=== PATIENT | female | born 1985 | race African-American/Black ===

== ENCOUNTER 2020-02-08 10:14 | Emergency (ER) | payer OTHER ==
[~2020-02-08] VITALS: Ht 162.6 cm; Wt 77.3 kg
[~2020-02-08 10:14] MED LIST: NOCURR
[2020-02-08] MEDS ORDERED: HYDROCODONE/ACETAMINOPHEN 5-325 MG TABLET PO ONE (11:15)
[2020-02-08] MEDS ORDERED: QUEtiapine FUMARATE 100 MG TABLET PO ONE (11:15)
[2020-02-08 11:36] LABS: BASOPHILS % (AUTO) 0.5 % (0.0-2.0); EOSINOPHILS % (AUTO) 7.7 % (1.0-6.0); HEMATOCRIT 35.7 % (36-46); HEMOGLOBIN 11.8 g/dL (12.0-16.0); LYMPHOCYTES # (AUTO) 2.2 K/uL (1.0-4.8); LYMPHOCYTES % (AUTO) 23.7 % (22.0-44.0); MEAN CORPUSCULAR VOLUME 97 fL (80-100); MONOCYTES # (AUTO) 0.7 K/uL (0.1-1.0); MONOCYTES % (AUTO) 7.5 % (2.0-9.0); NEUTROPHILS # (AUTO) 5.7 K/uL (1.8-7.7); NEUTROPHILS % (AUTO) 60.6 % (40.0-70.0); PLATELET COUNT (AUTO) 359 K/uL (150-450); RED BLOOD CELL COUNT(AUTO) 3.68 MIL/uL (4.00-5.20); RED CELL DISTRIBUTION WIDTH 13.9 % (11.5-14.5)
[2020-02-08 11:56] LABS: ANION GAP 8 mmol/L (8-16); CALCIUM, TOTAL 8.7 mg/dL (8.8-10.5); CARBON DIOXIDE 26 mmol/L (22-29); CHLORIDE 105 mmol/L (98-107); CREATININE 0.85 mg/dL (0.60-1.30); GLOMERULAR FILTR. RATE CALC > 60 mL/min (>60); GLUCOSE,RANDOM 93 mg/dL (70-110); POTASSIUM 3.8 mmol/L (3.5-5.1); SODIUM SERUM 139 mmol/L (136-145); UREA NITROGEN, BLOOD 9 mg/dL (7-18)
[2020-02-08 12:08] LABS: ALANINE AMINOTRANSFERASE 23 U/L (12-78); ALBUMIN 3.7 g/dL (3.4-5.0); ALKALINE PHOSPHATASE 69 U/L (46-116); ASPARTATE AMINOTRANSFERASE 17 U/L (15-37); BILIRUBIN,TOTAL 0.1 mg/dL (0.1-1.0); HCG,QUANTITATIVE < 1 mIU/mL (0-6); TOTAL PROTEIN, SERUM 7.6 g/dL (6.4-8.2)
[2020-02-08] MEDS ORDERED: HALOPERIDOL 5 MG TABLET PO PRN (12:30)
[2020-02-08] MEDS ORDERED: LORazepam 2 MG TABLET PO PRN (12:30)
[2020-02-08] MEDS ORDERED: ZOLPIDEM TARTRATE 10 MG TABLET PO PRN (12:30)
[2020-02-08] MEDS ORDERED: MORPHINE SULFATE 4 MG/ML SYRINGE IVP ONE (13:30)
[2020-02-08] MEDS ORDERED: AMPICILLIN SODIUM/SULBACTAM NA 3 GM/VIAL IM ONE (13:45)
[2020-02-08] MEDS ORDERED: AMPICILLIN SODIUM/SULBACTAM NA 1.5 GM/VIAL IM ONE (13:45)
[2020-02-08] MEDS ORDERED: KETOROLAC TROMETHAMINE 30 MG/ML VIAL IVP ONE (13:45)
[2020-02-08 14:23] VITALS: BP 113/60
== END 2020-02-08 15:57 | disposition short-term general hospital (02) ==
LOC: EMS 10:15
DX: S02.32XA Fracture of orbital floor, left side, initial encounter for closed fracture (principal); R45.851 Suicidal ideations; F31.9 Bipolar disorder, unspecified; F20.9 Schizophrenia, unspecified; F17.210 Nicotine dependence, cigarettes, uncomplicated; F12.90 Cannabis use, unspecified, uncomplicated; F19.90 Other psychoactive substance use, unspecified, uncomplicated; Y04.2XXA Assault by strike against or bumped into by another person, initial encounter; Y93.89 Activity, other specified; Y92.89 Other specified places as the place of occurrence of the external cause; Y99.8 Other external cause status
CPT/HCPCS: 36415; 70450; 70486; 80053; 84702; 85025; 96372; 96374; 96375; 99285; G0480; J0295; J1885; J2270

== ENCOUNTER 2020-02-23 11:13 | Emergency (ER) | payer OTHER ==
[~2020-02-23] VITALS: Ht 165.1 cm; Wt 63.6 kg
[2020-02-23] MEDS ORDERED: METH-372 PO (11:25)
[2020-02-23] MEDS ORDERED: QUET300T2 PO (11:25)
[2020-02-23] MEDS ORDERED: VENL-68 PO (11:25)
[2020-02-23] MEDS ORDERED: SODIUM CHLORIDE 0.9% 1,000 ML IV ONE (11:45)
[2020-02-23] MEDS ORDERED: ACETAMINOPHEN 325 MG TABLET PO ONE (11:45)
[2020-02-23] MEDS ORDERED: ONDANSETRON HCL 4 MG/2 ML VIAL IVP ONE (11:45)
[2020-02-23] MEDS ORDERED: LORazepam 2 MG/ML VIAL IVP ONE (11:45)
[2020-02-23] MEDS ORDERED: HALOPERIDOL 5 MG TABLET PO ONE (12:00)
[2020-02-23 12:49] LABS: BASOPHILS % (AUTO) 0.3 % (0.0-2.0); EOSINOPHILS % (AUTO) 1.5 % (1.0-6.0); HEMATOCRIT 41.3 % (36-46); HEMOGLOBIN 13.6 g/dL (12.0-16.0); LYMPHOCYTES # (AUTO) 2.1 K/uL (1.0-4.8); LYMPHOCYTES % (AUTO) 11.5 % (22.0-44.0); MEAN CORPUSCULAR HEMOGLOBIN 31.1 pg (26.0-34.0); MEAN CORPUSCULAR HGB CONC 32.9 G/dL (31.0-37.0); MEAN CORPUSCULAR VOLUME 95 fL (80-100); MONOCYTES # (AUTO) 1.4 K/uL (0.1-1.0); MONOCYTES % (AUTO) 7.7 % (2.0-9.0); NEUTROPHILS # (AUTO) 14.6 K/uL (1.8-7.7); PLATELET COUNT (AUTO) 421 K/uL (150-450); RED BLOOD CELL COUNT(AUTO) 4.36 MIL/uL (4.00-5.20); RED CELL DISTRIBUTION WIDTH 13.9 % (11.5-14.5)
[2020-02-23 14:20] LABS: CALCIUM, TOTAL 9.4 mg/dL (8.8-10.5); CARBON DIOXIDE 21 mmol/L (22-29); CREATININE 0.91 mg/dL (0.60-1.30); GLOMERULAR FILTR. RATE CALC > 60 mL/min (>60); GLUCOSE,RANDOM 89 mg/dL (70-110); POTASSIUM 3.2 mmol/L (3.5-5.1); SODIUM SERUM 138 mmol/L (136-145); UREA NITROGEN, BLOOD 16 mg/dL (7-18)
[2020-02-23 14:23] LABS: ANION GAP 16 mmol/L (8-16); CHLORIDE 101 mmol/L (98-107)
[2020-02-23 14:26] LABS: ALANINE AMINOTRANSFERASE 45 U/L (12-78); ALBUMIN 4.6 g/dL (3.4-5.0); ALKALINE PHOSPHATASE 83 U/L (46-116); ASPARTATE AMINOTRANSFERASE 108 U/L (15-37); TOTAL PROTEIN, SERUM 9.1 g/dL (6.4-8.2)
[2020-02-23 15:00] VITALS: BP 127/79
== END 2020-02-23 15:11 | disposition left against medical advice (07) ==
LOC: EMS 11:16
DX: F20.9 Schizophrenia, unspecified (principal); D72.829 Elevated white blood cell count, unspecified; F41.9 Anxiety disorder, unspecified; F19.10 Other psychoactive substance abuse, uncomplicated; F31.9 Bipolar disorder, unspecified; F17.210 Nicotine dependence, cigarettes, uncomplicated; F12.90 Cannabis use, unspecified, uncomplicated
CPT/HCPCS: 36415; 80053; 85025; 96374; 96375; 99285; G0480; J2060; J2405; J7030

== ENCOUNTER 2020-03-19 12:21 | Inpatient (IN) | payer MEDICAID ==
[~2020-03-19 12:21] MED LIST changes: +METH-372 PO; -NOCURR; +QUET300T2 PO; +VENL-68 PO
[2020-03-19] MEDS ORDERED: ZOLPIDEM TARTRATE 10 MG TABLET PO PRN (18:45)
[2020-03-19] MEDS ORDERED: HALOPERIDOL 5 MG TABLET PO PRN (18:45)
[2020-03-19] MEDS: LORazepam 2 MG TABLET PO PRN (20:44)
[2020-03-19] MEDS: METHOCARBAMOL 750 MG TABLET PO SCH ×2 (21:00→21:37)
[2020-03-19 22:34] VITALS: BP 107/63
[2020-03-20 00:03] VITALS: BP 106/68
[2020-03-20] MEDS: LORazepam 2 MG TABLET PO PRN (06:20)
[2020-03-20] MEDS ORDERED: ACETAMINOPHEN 325 MG TABLET PO PRN ×2 (06:45→10:45)
[2020-03-20 08:20] LABS: BASOPHILS % (AUTO) 0.5 % (0.0-2.0); EOSINOPHILS % (AUTO) 11.2 % (1.0-6.0); HEMATOCRIT 36.1 % (36-46); HEMOGLOBIN 11.9 g/dL (12.0-16.0); LYMPHOCYTES # (AUTO) 1.7 K/uL (1.0-4.8); LYMPHOCYTES % (AUTO) 32.9 % (22.0-44.0); MEAN CORPUSCULAR HEMOGLOBIN 31.9 pg (26.0-34.0); MEAN CORPUSCULAR HGB CONC 32.9 G/dL (31.0-37.0); MEAN CORPUSCULAR VOLUME 97 fL (80-100); MONOCYTES # (AUTO) 0.3 K/uL (0.1-1.0); MONOCYTES % (AUTO) 6.9 % (2.0-9.0); NEUTROPHILS # (AUTO) 2.4 K/uL (1.8-7.7); NEUTROPHILS % (AUTO) 48.5 % (40.0-70.0); PLATELET COUNT (AUTO) 319 K/uL (150-450); RED BLOOD CELL COUNT(AUTO) 3.72 MIL/uL (4.00-5.20); RED CELL DISTRIBUTION WIDTH 13.9 % (11.5-14.5)
[2020-03-20] MEDS: METHOCARBAMOL 750 MG TABLET PO SCH ×4 (08:36→20:22)
[2020-03-20 09:08] LABS: ALANINE AMINOTRANSFERASE 17 U/L (12-78); ALBUMIN 3.5 g/dL (3.4-5.0); ALKALINE PHOSPHATASE 75 U/L (46-116); ANION GAP 10 mmol/L (8-16); ASPARTATE AMINOTRANSFERASE 14 U/L (15-37); BILIRUBIN,TOTAL 0.2 mg/dL (0.1-1.0); CALCIUM, TOTAL 8.9 mg/dL (8.8-10.5); CARBON DIOXIDE 24 mmol/L (22-29); CHLORIDE 106 mmol/L (98-107); CHOL/HDL RATIO 2.9 (3.9-5.7); CHOLESTEROL 140 mg/dL (131-200); CREATININE 0.79 mg/dL (0.60-1.30); FREE T4 (FREE THYROXINE) 0.96 ng/dL (0.76-1.46); GLOMERULAR FILTR. RATE CALC > 60 mL/min (>60); GLUCOSE,RANDOM 79 mg/dL (70-110); HDL CHOLESTEROL 48 mg/dL (40-60); LDL CHOL (CALC.) 77 mg/dL (0-130); POTASSIUM 3.9 mmol/L (3.5-5.1); SODIUM SERUM 140 mmol/L (136-145); THYROID STIMULATING HORMONE 0.43 uIU/mL (0.36-3.74); TOTAL PROTEIN, SERUM 7.4 g/dL (6.4-8.2); TRIGLYCERIDES 76 mg/dL (15-150); UREA NITROGEN, BLOOD 16 mg/dL (7-18)
[2020-03-20 10:44] VITALS: BP 116/77
[2020-03-20] MEDS ORDERED: IBUPROFEN 400 MG TABLET PO PRN (10:45)
[2020-03-20] MEDS ORDERED: MAG HYDROX/AL HYDROX/SIMETH ES 30 ML SUSPENSION UDCUP PO PRN (10:45)
[2020-03-20] MEDS ORDERED: PETROLATUM,WHITE 28 GM JELLY TP PRN (10:45)
[2020-03-20] MEDS ORDERED: LOPERAMIDE HCL 2 MG CAPSULE PO PRN (10:45)
[2020-03-20] MEDS ORDERED: NICOTINE 14 MG/24 HOUR PATCH TD PRN (10:45)
[2020-03-20] MEDS ORDERED: CloNIDine HCL 0.1 MG TABLET PO PRN (10:45)
[2020-03-20] MEDS ORDERED: DOCUSATE SODIUM 100 MG CAPSULE PO PRN (10:45)
[2020-03-20] MEDS ORDERED: ONDANSETRON HCL 4 MG TABLET PO PRN (10:45)
[2020-03-20] MEDS ORDERED: MAGNESIUM HYDROXIDE SUSPENSION 30 ML UDCUP PO PRN (10:45)
[2020-03-20] MEDS ORDERED: GuaiFENesin/D-METHORPHAN [SUGAR-FREE] 200-20MG/10 ML SYRUP UDCUP PO PRN (10:45)
[2020-03-20] MEDS ORDERED: ALBUTEROL SULFATE HFA 90 MCG/PUFF 8 GM INHALER IH PRN (10:45)
[2020-03-20 16:08] VITALS: BP 120/72
[2020-03-20] MEDS: VENLAFAXINE HCL 150 MG ER CAPSULE PO SCH (16:17)
[2020-03-20] MEDS: QUEtiapine FUMARATE 300 MG TABLET PO SCH (20:22)
[2020-03-21 01:00] VITALS: BP 113/71
[2020-03-21] MEDS: VENLAFAXINE HCL 150 MG ER CAPSULE PO SCH (08:26)
[2020-03-21] MEDS: METHOCARBAMOL 750 MG TABLET PO SCH ×4 (08:26→20:16)
[2020-03-21 08:33] VITALS: BP 106/57
[2020-03-21 09:17] LABS: APPEARANCE,URINE CLEAR (CLEAR); BILIRUBIN,URINE NEGATIVE (NEGATIVE); GLUCOSE, URINE (UA) NEGATIVE (NEGATIVE); KETONES,URINE NEGATIVE (NEGATIVE); NITRATE,URINE NEGATIVE (NEGATIVE); PROTEIN,URINE NEGATIVE (NEGATIVE); UROBILINOGEN,URINE 0.2 mg/dL (<=1.0)
[2020-03-21 09:18] LABS: AMPHET/METH SCREEN,URINE NEGATIVE (NEGATIVE); BARBITURATE SCREEN, URINE NEGATIVE (NEGATIVE); BENZODIAZEPINES SCREEN,URINE NEGATIVE (NEGATIVE); CANNABINOID SCREEN,URINE NEGATIVE (NEGATIVE); COCAINE SCREEN,URINE NEGATIVE (NEGATIVE); METHADONE SCREEN, URINE NEGATIVE (NEGATIVE); OPIATE SCREEN,URINE NEGATIVE (NEGATIVE)
[2020-03-21 09:22] LABS: PHENCYCLIDINE SCREEN,URINE NEGATIVE (NEGATIVE)
[2020-03-21 09:39] LABS: BACTERIA,URINE None Seen /HPF (None Seen); LEUKOCYTE ESTERASE ,URINE TRACE (NEGATIVE); OCCULT BLOOD,URINE SMALL (NEGATIVE); WBC,URINE 0-2 /HPF (0-5)
[2020-03-21 09:40] LABS: SQUAMOUS EPITHELIAL CELL,UR Moderate /LPF (None Seen)
[2020-03-21 16:06] VITALS: BP 113/73
[2020-03-21] MEDS: QUEtiapine FUMARATE 300 MG TABLET PO SCH (20:16)
[2020-03-22 00:56] VITALS: BP 120/79
[2020-03-22 08:30] VITALS: BP 115/56
[2020-03-22] MEDS: VENLAFAXINE HCL 150 MG ER CAPSULE PO SCH (08:43)
[2020-03-22] MEDS: METHOCARBAMOL 750 MG TABLET PO SCH ×4 (08:43→20:31)
[2020-03-22] MEDS: LORazepam 2 MG TABLET PO PRN (10:59)
[2020-03-22] MEDS: QUEtiapine FUMARATE 25 MG TABLET PO SCH (13:10)
[2020-03-22 16:00] VITALS: BP 131/64
[2020-03-22] MEDS: QUEtiapine FUMARATE 300 MG TABLET PO SCH (20:31)
[2020-03-23 00:55] VITALS: BP 119/80
[2020-03-23] MEDS: METHOCARBAMOL 750 MG TABLET PO SCH ×4 (08:48→20:21)
[2020-03-23] MEDS: VENLAFAXINE HCL 150 MG ER CAPSULE PO SCH (08:48)
[2020-03-23] MEDS: QUEtiapine FUMARATE 25 MG TABLET PO SCH (08:49)
[2020-03-23 11:22] VITALS: BP 116/73
[2020-03-23] MEDS: LORazepam 2 MG TABLET PO PRN (11:22)
[2020-03-23 12:40] VITALS: BP 99/58
[2020-03-23 16:29] VITALS: BP 103/54
[2020-03-23] MEDS: QUEtiapine FUMARATE 300 MG TABLET PO SCH (20:21)
[2020-03-24 07:18] VITALS: BP 105/61
[2020-03-24] MEDS: METHOCARBAMOL 750 MG TABLET PO SCH ×4 (09:00→21:17)
[2020-03-24] MEDS: QUEtiapine FUMARATE 25 MG TABLET PO SCH (09:00)
[2020-03-24] MEDS: VENLAFAXINE HCL 150 MG ER CAPSULE PO SCH (09:00)
[2020-03-24 09:22] VITALS: BP 105/62
[2020-03-24] MEDS: LORazepam 2 MG TABLET PO PRN ×2 (10:53→17:03)
[2020-03-24 16:22] VITALS: BP 127/88
[2020-03-24] MEDS: QUEtiapine FUMARATE 300 MG TABLET PO SCH (21:17)
[2020-03-25 06:26] VITALS: BP 105/69
[2020-03-25] MEDS: QUEtiapine FUMARATE 25 MG TABLET PO SCH (08:05)
[2020-03-25] MEDS: METHOCARBAMOL 750 MG TABLET PO SCH ×4 (08:06→21:08)
[2020-03-25] MEDS: VENLAFAXINE HCL 150 MG ER CAPSULE PO SCH (08:07)
[2020-03-25] MEDS: LORazepam 2 MG TABLET PO PRN (08:08)
[2020-03-25 08:47] VITALS: BP 108/65
[2020-03-25] MEDS ORDERED: QUEtiapine FUMARATE 25 MG TABLET PO ONE (09:30)
[2020-03-25 16:16] VITALS: BP 111/65
[2020-03-25] MEDS: QUEtiapine FUMARATE 200 MG TABLET PO SCH (21:08)
[2020-03-26 05:06] VITALS: BP 110/68
[2020-03-26] MEDS: LORazepam 2 MG TABLET PO PRN ×2 (07:14→16:25)
[2020-03-26 08:40] VITALS: BP 109/75
[2020-03-26] MEDS: QUEtiapine FUMARATE 100 MG TABLET PO SCH (08:51)
[2020-03-26] MEDS: VENLAFAXINE HCL 150 MG ER CAPSULE PO SCH (08:51)
[2020-03-26] MEDS: METHOCARBAMOL 750 MG TABLET PO SCH ×4 (08:51→20:47)
[2020-03-26 16:38] VITALS: BP 113/74
[2020-03-26] MEDS: QUEtiapine FUMARATE 200 MG TABLET PO SCH (20:47)
[2020-03-27 00:45] VITALS: BP 107/63
[2020-03-27] MEDS: LORazepam 2 MG TABLET PO PRN (07:09)
[2020-03-27] MEDS: VENLAFAXINE HCL 150 MG ER CAPSULE PO SCH (08:39)
[2020-03-27] MEDS: METHOCARBAMOL 750 MG TABLET PO SCH ×2 (08:39→12:35)
[2020-03-27] MEDS: QUEtiapine FUMARATE 100 MG TABLET PO SCH (08:39)
[2020-03-27 09:33] VITALS: BP 133/75
[2020-03-27] MEDS ORDERED: QUET100T PO (14:19)
[2020-03-27] MEDS ORDERED: QUET200T PO (14:28)
== END 2020-03-27 15:45 | disposition home or self-care (01) | DRG 750 ==
LOC: B2S 18:39
DX: F25.1 Schizoaffective disorder, depressive type (principal); R45.851 Suicidal ideations; Z59.0 Homelessness; N39.0 Urinary tract infection, site not specified; D64.9 Anemia, unspecified; F15.10 Other stimulant abuse, uncomplicated; Z79.899 Other long term (current) drug therapy
CPT/HCPCS: 80307; 83036; 84439; 84443; 86592; G0480

== ENCOUNTER 2022-04-08 10:48 | Inpatient (IN) | payer MEDICAID, OTHER ==
[~2022-04-08] VITALS: Ht 162.6 cm; Wt 87.5 kg
[~2022-04-08 10:48] MED LIST changes: +QUET100T PO; +QUET200T PO; -QUET300T2 PO
[2022-04-08 14:10] LABS: BASOPHILS % (AUTO) 0.2 % (0.0-2.0); EOSINOPHILS % (AUTO) 0.5 % (1.0-6.0); HEMATOCRIT 33.1 % (36-46); HEMOGLOBIN 10.9 g/dL (12.0-16.0); LYMPHOCYTES # (AUTO) 1.9 K/uL (1.0-4.8); LYMPHOCYTES % (AUTO) 16.8 % (22.0-44.0); MEAN CORPUSCULAR HEMOGLOBIN 27.7 pg (26.0-34.0); MEAN CORPUSCULAR HGB CONC 33.1 G/dL (31.0-37.0); MEAN CORPUSCULAR VOLUME 84 fL (80-100); MONOCYTES # (AUTO) 0.7 K/uL (0.1-1.0); MONOCYTES % (AUTO) 6.5 % (2.0-9.0); NEUTROPHILS # (AUTO) 8.4 K/uL (1.8-7.7); PLATELET COUNT (AUTO) 466 K/uL (150-450); RED BLOOD CELL COUNT(AUTO) 3.96 MIL/uL (4.00-5.20); RED CELL DISTRIBUTION WIDTH 18.3 % (11.5-14.5)
[2022-04-08 14:36] LABS: ALANINE AMINOTRANSFERASE 21 U/L (12-78); ALBUMIN 4.1 g/dL (3.4-5.0); ALKALINE PHOSPHATASE 76 U/L (46-116); ANION GAP 14 mmol/L (8-16); ASPARTATE AMINOTRANSFERASE 19 U/L (15-37); BILIRUBIN,TOTAL 0.7 mg/dL (0.1-1.0); CALCIUM, TOTAL 9.5 mg/dL (8.8-10.5); CARBON DIOXIDE 20 mmol/L (22-29); CHLORIDE 105 mmol/L (98-107); CREATININE 0.88 mg/dL (0.60-1.30); GLOMERULAR FILTR. RATE CALC > 60 mL/min (>60); GLUCOSE,RANDOM 90 mg/dL (70-110); HCG,QUANTITATIVE < 1 mIU/mL (0-6); POTASSIUM 2.9 mmol/L (3.5-5.1); SODIUM SERUM 139 mmol/L (136-145); TOTAL PROTEIN, SERUM 8.2 g/dL (6.4-8.2); UREA NITROGEN, BLOOD 11 mg/dL (7-18)
[2022-04-08] MEDS ORDERED: POTASSIUM CHLORIDE 20 MEQ ER TABLET PO ONE (14:45)
[2022-04-08 14:48] LABS: COVID AG,FIA SOURCE NASOPHARYNGEAL
[2022-04-08] MEDS ORDERED: HALOPERIDOL 5 MG TABLET PO PRN (15:00)
[2022-04-08] MEDS: LORazepam 2 MG TABLET PO PRN (15:50)
[2022-04-08] MEDS: QUEtiapine FUMARATE 100 MG TABLET PO PRN (15:50)
[2022-04-08 21:54] VITALS: BP 128/91
[2022-04-09 00:34] VITALS: BP 124/87
[2022-04-09] MEDS: LORazepam 2 MG TABLET PO PRN ×3 (04:08→14:25)
[2022-04-09] MEDS ORDERED: BENZOCAINE/MENTHOL LOZENGE PO PRN (06:15)
[2022-04-09] MEDS ORDERED: LOPERAMIDE HCL 2 MG CAPSULE PO PRN (06:15)
[2022-04-09] MEDS ORDERED: CloNIDine HCL 0.1 MG TABLET PO PRN (06:15)
[2022-04-09] MEDS ORDERED: PETROLATUM,WHITE 28 GM JELLY TP PRN (06:15)
[2022-04-09] MEDS ORDERED: DOCUSATE SODIUM 100 MG CAPSULE PO PRN (06:15)
[2022-04-09] MEDS ORDERED: POTASSIUM CHLORIDE 20 MEQ ER TABLET PO ONE (06:15)
[2022-04-09] MEDS ORDERED: ONDANSETRON HCL 4 MG TABLET PO PRN (06:15)
[2022-04-09] MEDS ORDERED: ACETAMINOPHEN 325 MG TABLET PO PRN (06:15)
[2022-04-09] MEDS ORDERED: MAG HYDROX/AL HYDROX/SIMETH ES 30 ML SUSPENSION UDCUP PO PRN (06:15)
[2022-04-09] MEDS ORDERED: BACITRACIN 28 GM OINTMENT TP PRN (06:15)
[2022-04-09] MEDS ORDERED: MAGNESIUM HYDROXIDE SUSPENSION 30 ML UDCUP PO PRN (06:15)
[2022-04-09] MEDS ORDERED: OMEPRAZOLE 20 MG CAPSULE PO PRN (06:15)
[2022-04-09] MEDS ORDERED: ALBUTEROL SULFATE HFA 90 MCG/PUFF 8 GM INHALER IH PRN (06:15)
[2022-04-09 08:26] VITALS: BP 106/64
[2022-04-09] MEDS: IBUPROFEN 600 MG TABLET PO PRN ×2 (08:40→14:42)
[2022-04-09] MEDS: VENLAFAXINE HCL 150 MG ER CAPSULE PO SCH (10:35)
[2022-04-09] MEDS: DIVALPROEX SODIUM 500 MG DR TABLET PO SCH ×2 (10:36→16:18)
[2022-04-09] MEDS: QUEtiapine FUMARATE 100 MG TABLET PO PRN (14:31)
[2022-04-09 16:28] VITALS: BP 105/73
[2022-04-09] MEDS: QUEtiapine FUMARATE 200 MG TABLET PO SCH (20:49)
[2022-04-10 06:49] LABS: BASOPHILS % (AUTO) 0.3 % (0.0-2.0); EOSINOPHILS % (AUTO) 3.1 % (1.0-6.0); HEMOGLOBIN 10.6 g/dL (12.0-16.0); LYMPHOCYTES # (AUTO) 2.5 K/uL (1.0-4.8); LYMPHOCYTES % (AUTO) 29.8 % (22.0-44.0); MEAN CORPUSCULAR HEMOGLOBIN 27.9 pg (26.0-34.0); MEAN CORPUSCULAR VOLUME 84 fL (80-100); MONOCYTES # (AUTO) 0.5 K/uL (0.1-1.0); MONOCYTES % (AUTO) 6.4 % (2.0-9.0); NEUTROPHILS # (AUTO) 5.1 K/uL (1.8-7.7); NEUTROPHILS % (AUTO) 60.4 % (40.0-70.0); PLATELET COUNT (AUTO) 464 K/uL (150-450); RED BLOOD CELL COUNT(AUTO) 3.79 MIL/uL (4.00-5.20); RED CELL DISTRIBUTION WIDTH 18.5 % (11.5-14.5)
[2022-04-10 07:19] LABS: ALANINE AMINOTRANSFERASE 16 U/L (12-78); ALBUMIN 3.5 g/dL (3.4-5.0); ALKALINE PHOSPHATASE 70 U/L (46-116); ANION GAP 10 mmol/L (8-16); ASPARTATE AMINOTRANSFERASE 12 U/L (15-37); BILIRUBIN,TOTAL 0.3 mg/dL (0.1-1.0); CALCIUM, TOTAL 9.2 mg/dL (8.8-10.5); CARBON DIOXIDE 23 mmol/L (22-29); CHLORIDE 109 mmol/L (98-107); CREATININE 0.97 mg/dL (0.60-1.30); GLOMERULAR FILTR. RATE CALC > 60 mL/min (>60); GLUCOSE,RANDOM 83 mg/dL (70-110); PHOSPHORUS 5.1 mg/dL (2.5-4.9); POTASSIUM 3.9 mmol/L (3.5-5.1); SODIUM SERUM 142 mmol/L (136-145); TOTAL PROTEIN, SERUM 7.3 g/dL (6.4-8.2); UREA NITROGEN, BLOOD 14 mg/dL (7-18)
[2022-04-10 08:21] VITALS: BP 100/60
[2022-04-10] MEDS: VENLAFAXINE HCL 150 MG ER CAPSULE PO SCH (08:39)
[2022-04-10] MEDS: DIVALPROEX SODIUM 500 MG DR TABLET PO SCH ×2 (08:39→16:22)
[2022-04-10] MEDS: QUEtiapine FUMARATE 100 MG TABLET PO PRN (11:29)
[2022-04-10] MEDS: LORazepam 2 MG TABLET PO PRN (11:30)
[2022-04-10 16:16] VITALS: BP 105/62
[2022-04-10] MEDS: QUEtiapine FUMARATE 200 MG TABLET PO SCH (20:17)
[2022-04-11 00:36] VITALS: BP 102/66
[2022-04-11 08:06] VITALS: BP_SYST 117; BP_SYST 98; BP_DIAS 58; BP_DIAS 77
[2022-04-11] MEDS: DIVALPROEX SODIUM 500 MG DR TABLET PO SCH ×2 (08:30→16:19)
[2022-04-11] MEDS: LORazepam 2 MG TABLET PO PRN (08:30)
[2022-04-11] MEDS: VENLAFAXINE HCL 150 MG ER CAPSULE PO SCH (08:30)
[2022-04-11] MEDS: QUEtiapine FUMARATE 200 MG TABLET PO SCH ×2 (10:40→20:13)
[2022-04-11] MEDS: QUEtiapine FUMARATE 100 MG TABLET PO PRN (12:15)
[2022-04-11 16:03] VITALS: BP 103/64
[2022-04-12 06:11] VITALS: BP 110/62
[2022-04-12] MEDS: DIVALPROEX SODIUM 500 MG DR TABLET PO SCH ×2 (08:40→16:13)
[2022-04-12] MEDS: VENLAFAXINE HCL 150 MG ER CAPSULE PO SCH (08:40)
[2022-04-12] MEDS: QUEtiapine FUMARATE 200 MG TABLET PO SCH ×2 (08:40→20:39)
[2022-04-12 08:54] VITALS: BP 91/60
[2022-04-12] MEDS ORDERED: DIVALPROEX SODIUM 500 MG DR TABLET PO SCH (11:15)
[2022-04-12] MEDS ORDERED: RisperiDONE 3 MG TABLET PO SCH (11:15)
[2022-04-12] MEDS ORDERED: QUET200T PO (11:20)
[2022-04-12] MEDS: LORazepam 2 MG TABLET PO PRN (16:13)
[2022-04-12 17:39] VITALS: BP 111/76
[2022-04-13 00:17] VITALS: BP 106/68
[2022-04-13] MEDS: QUEtiapine FUMARATE 200 MG TABLET PO SCH ×2 (08:01→20:21)
[2022-04-13] MEDS: VENLAFAXINE HCL 150 MG ER CAPSULE PO SCH (08:01)
[2022-04-13] MEDS: DIVALPROEX SODIUM 500 MG DR TABLET PO SCH ×2 (08:02→16:19)
[2022-04-13 08:42] VITALS: BP 124/82
[2022-04-13] MEDS: QUEtiapine FUMARATE 100 MG TABLET PO PRN (14:07)
[2022-04-13 16:00] VITALS: BP 99/62
[2022-04-13] MEDS: LORazepam 2 MG TABLET PO PRN (16:19)
[2022-04-14 00:43] VITALS: BP 108/68
[2022-04-14 08:08] VITALS: BP 115/63
[2022-04-14] MEDS: QUEtiapine FUMARATE 100 MG TABLET PO PRN ×2 (08:26→14:31)
[2022-04-14] MEDS: VENLAFAXINE HCL 150 MG ER CAPSULE PO SCH (08:26)
[2022-04-14] MEDS: DIVALPROEX SODIUM 500 MG DR TABLET PO SCH ×2 (08:26→16:03)
[2022-04-14] MEDS: LORazepam 2 MG TABLET PO PRN ×2 (08:33→14:31)
[2022-04-14] MEDS: QUEtiapine FUMARATE 200 MG TABLET PO SCH ×2 (10:34→20:09)
[2022-04-14 16:58] VITALS: BP 103/68
[2022-04-15 00:36] VITALS: BP 100/74
[2022-04-15] MEDS: LORazepam 2 MG TABLET PO PRN ×4 (07:13→16:38)
[2022-04-15 08:06] VITALS: BP 100/59
[2022-04-15] MEDS: DIVALPROEX SODIUM 500 MG DR TABLET PO SCH ×2 (08:34→15:58)
[2022-04-15] MEDS: VENLAFAXINE HCL 150 MG ER CAPSULE PO SCH (08:34)
[2022-04-15] MEDS: QUEtiapine FUMARATE 200 MG TABLET PO SCH ×2 (08:34→20:36)
[2022-04-15 12:16] VITALS: BP 108/68
[2022-04-15 16:38] VITALS: BP 109/70
[2022-04-15] MEDS: ZOLPIDEM TARTRATE 10 MG TABLET PO PRN (20:28)
[2022-04-15] MEDS: QUEtiapine FUMARATE 100 MG TABLET PO PRN (20:28)
[2022-04-16 03:03] VITALS: BP 108/64
[2022-04-16] MEDS: LORazepam 2 MG TABLET PO PRN ×4 (07:00→18:17)
[2022-04-16] MEDS: VENLAFAXINE HCL 150 MG ER CAPSULE PO SCH (08:39)
[2022-04-16] MEDS: DIVALPROEX SODIUM 500 MG DR TABLET PO SCH ×2 (08:40→16:53)
[2022-04-16] MEDS: QUEtiapine FUMARATE 200 MG TABLET PO SCH ×2 (08:40→20:58)
[2022-04-16 08:43] VITALS: BP 100/60
[2022-04-16 11:00] VITALS: BP 106/70
[2022-04-16] MEDS: QUEtiapine FUMARATE 100 MG TABLET PO PRN (12:03)
[2022-04-16 16:55] VITALS: BP 112/68
[2022-04-17 00:15] VITALS: BP 110/75
[2022-04-17] MEDS: VENLAFAXINE HCL 150 MG ER CAPSULE PO SCH (08:09)
[2022-04-17] MEDS: QUEtiapine FUMARATE 200 MG TABLET PO SCH ×2 (08:09→20:24)
[2022-04-17] MEDS: DIVALPROEX SODIUM 500 MG DR TABLET PO SCH ×2 (08:09→16:06)
[2022-04-17 08:44] VITALS: BP 100/60
[2022-04-17] MEDS: LORazepam 2 MG TABLET PO PRN (14:14)
[2022-04-17 16:53] VITALS: BP 97/67
[2022-04-18 00:35] VITALS: BP 100/75
[2022-04-18 08:09] VITALS: BP 100/60
[2022-04-18] MEDS: QUEtiapine FUMARATE 200 MG TABLET PO SCH ×2 (08:47→20:08)
[2022-04-18] MEDS: VENLAFAXINE HCL 150 MG ER CAPSULE PO SCH (08:47)
[2022-04-18] MEDS: DIVALPROEX SODIUM 500 MG DR TABLET PO SCH ×2 (08:47→16:15)
[2022-04-18] MEDS: LORazepam 2 MG TABLET PO PRN ×2 (13:11→18:44)
[2022-04-18 16:11] VITALS: BP 100/63
[2022-04-18 20:56] LABS: GLUCOMETER DEV NAME(LOC) POC.BV
[2022-04-19 00:06] VITALS: BP 102/66
[2022-04-19] MEDS: QUEtiapine FUMARATE 200 MG TABLET PO SCH ×2 (08:44→20:05)
[2022-04-19] MEDS: DIVALPROEX SODIUM 500 MG DR TABLET PO SCH ×2 (08:44→16:08)
[2022-04-19] MEDS: VENLAFAXINE HCL 150 MG ER CAPSULE PO SCH (08:56)
[2022-04-19] MEDS: LORazepam 2 MG TABLET PO PRN ×2 (10:52→16:08)
[2022-04-19 10:58] VITALS: BP 111/64
[2022-04-19 16:00] VITALS: BP 118/70
[2022-04-19] MEDS: ZOLPIDEM TARTRATE 10 MG TABLET PO PRN (20:05)
[2022-04-20 06:01] VITALS: BP 106/64
[2022-04-20 08:13] VITALS: BP 100/59
[2022-04-20] MEDS: QUEtiapine FUMARATE 200 MG TABLET PO SCH ×2 (08:35→20:35)
[2022-04-20] MEDS: DIVALPROEX SODIUM 500 MG DR TABLET PO SCH ×2 (08:35→16:37)
[2022-04-20] MEDS: VENLAFAXINE HCL 150 MG ER CAPSULE PO SCH (08:35)
[2022-04-20 12:40] VITALS: BP 108/70
[2022-04-20] MEDS: LORazepam 2 MG TABLET PO PRN (12:43)
[2022-04-20] MEDS: QUEtiapine FUMARATE 100 MG TABLET PO PRN (14:25)
[2022-04-20 16:41] VITALS: BP 102/64
[2022-04-21 00:14] VITALS: BP 100/72
[2022-04-21] MEDS: LORazepam 2 MG TABLET PO PRN ×2 (05:30→12:12)
[2022-04-21] MEDS: QUEtiapine FUMARATE 100 MG TABLET PO PRN ×2 (05:30→12:12)
[2022-04-21 08:09] VITALS: BP 100/62
[2022-04-21] MEDS: VENLAFAXINE HCL 150 MG ER CAPSULE PO SCH (09:05)
[2022-04-21] MEDS: DIVALPROEX SODIUM 500 MG DR TABLET PO SCH ×2 (09:06→17:15)
[2022-04-21] MEDS: QUEtiapine FUMARATE 200 MG TABLET PO SCH ×2 (09:06→20:10)
[2022-04-21 12:00] VITALS: BP 110/68
[2022-04-21 16:12] VITALS: BP 100/60
[2022-04-22 00:33] VITALS: BP 102/61
[2022-04-22 07:16] LABS: BASOPHILS % (AUTO) 0.6 % (0.0-2.0); EOSINOPHILS % (AUTO) 3.9 % (1.0-6.0); HEMATOCRIT 29.8 % (36-46); HEMOGLOBIN 9.9 g/dL (12.0-16.0); LYMPHOCYTES % (AUTO) 34.9 % (22.0-44.0); MEAN CORPUSCULAR HEMOGLOBIN 27.8 pg (26.0-34.0); MEAN CORPUSCULAR HGB CONC 33.1 G/dL (31.0-37.0); MEAN CORPUSCULAR VOLUME 84 fL (80-100); MONOCYTES # (AUTO) 0.5 K/uL (0.1-1.0); MONOCYTES % (AUTO) 8.4 % (2.0-9.0); NEUTROPHILS % (AUTO) 52.2 % (40.0-70.0); PLATELET COUNT (AUTO) 318 K/uL (150-450); RED BLOOD CELL COUNT(AUTO) 3.55 MIL/uL (4.00-5.20); RED CELL DISTRIBUTION WIDTH 19.1 % (11.5-14.5)
[2022-04-22 07:52] LABS: ALANINE AMINOTRANSFERASE 25 U/L (12-78); ALBUMIN 2.9 g/dL (3.4-5.0); ALKALINE PHOSPHATASE 69 U/L (46-116); ANION GAP 4 mmol/L (8-16); ASPARTATE AMINOTRANSFERASE 17 U/L (15-37); BILIRUBIN,TOTAL 0.1 mg/dL (0.1-1.0); CALCIUM, TOTAL 8.7 mg/dL (8.8-10.5); CARBON DIOXIDE 26 mmol/L (22-29); CHLORIDE 103 mmol/L (98-107); GLOMERULAR FILTR. RATE CALC > 60 mL/min (>60); GLUCOSE,RANDOM 72 mg/dL (70-110); POTASSIUM 4.5 mmol/L (3.5-5.1); SODIUM SERUM 133 mmol/L (136-145); TOTAL PROTEIN, SERUM 6.1 g/dL (6.4-8.2); UREA NITROGEN, BLOOD 11 mg/dL (7-18)
[2022-04-22 08:19] VITALS: BP 100/61
[2022-04-22] MEDS: VENLAFAXINE HCL 150 MG ER CAPSULE PO SCH (08:42)
[2022-04-22] MEDS: QUEtiapine FUMARATE 200 MG TABLET PO SCH ×2 (08:42→22:03)
[2022-04-22] MEDS: DIVALPROEX SODIUM 500 MG DR TABLET PO SCH ×2 (08:42→16:07)
[2022-04-22 11:55] VITALS: BP 106/70
[2022-04-22] MEDS: QUEtiapine FUMARATE 100 MG TABLET PO PRN (11:57)
[2022-04-22] MEDS: LORazepam 2 MG TABLET PO PRN (11:57)
[2022-04-22 16:16] VITALS: BP 100/59
[2022-04-23 01:32] VITALS: BP 102/68
[2022-04-23] MEDS: FERROUS SULFATE 325 MG EC TABLET PO SCH ×3 (06:55→16:42)
[2022-04-23] MEDS: DIVALPROEX SODIUM 500 MG DR TABLET PO SCH ×2 (08:23→16:42)
[2022-04-23] MEDS: QUEtiapine FUMARATE 200 MG TABLET PO SCH ×2 (08:23→20:06)
[2022-04-23] MEDS: VENLAFAXINE HCL 150 MG ER CAPSULE PO SCH (08:23)
[2022-04-23 08:35] VITALS: BP 93/53
[2022-04-23 12:40] VITALS: BP 112/68
[2022-04-23] MEDS: LORazepam 2 MG TABLET PO PRN ×2 (12:40→17:29)
[2022-04-23] MEDS: QUEtiapine FUMARATE 100 MG TABLET PO PRN ×2 (12:40→17:29)
[2022-04-23 16:12] VITALS: BP 102/69
[2022-04-23] MEDS: TraZODone HCL 50 MG TABLET PO SCH (20:06)
[2022-04-24 00:15] VITALS: BP 105/66
[2022-04-24] MEDS: FERROUS SULFATE 325 MG EC TABLET PO SCH ×3 (06:49→16:13)
[2022-04-24 08:16] VITALS: BP 112/72
[2022-04-24] MEDS: DIVALPROEX SODIUM 500 MG DR TABLET PO SCH ×2 (08:16→16:13)
[2022-04-24] MEDS: LORazepam 2 MG TABLET PO PRN ×3 (08:17→17:51)
[2022-04-24] MEDS: GABAPENTIN 300 MG CAPSULE PO SCH ×2 (08:17→16:13)
[2022-04-24] MEDS: QUEtiapine FUMARATE 200 MG TABLET PO SCH ×2 (08:17→20:02)
[2022-04-24] MEDS: VENLAFAXINE HCL 150 MG ER CAPSULE PO SCH (08:17)
[2022-04-24] MEDS: QUEtiapine FUMARATE 100 MG TABLET PO PRN (17:51)
[2022-04-24] MEDS: TraZODone HCL 50 MG TABLET PO SCH (20:02)
[2022-04-24 20:08] VITALS: BP 125/72
[2022-04-25] MEDS: FERROUS SULFATE 325 MG EC TABLET PO SCH ×3 (06:25→16:35)
[2022-04-25] MEDS: LORazepam 2 MG TABLET PO PRN ×2 (06:25→16:09)
[2022-04-25] MEDS: QUEtiapine FUMARATE 100 MG TABLET PO PRN (06:25)
[2022-04-25 08:20] VITALS: BP 90/59
[2022-04-25] MEDS: DIVALPROEX SODIUM 500 MG DR TABLET PO SCH ×2 (09:17→16:35)
[2022-04-25] MEDS: GABAPENTIN 300 MG CAPSULE PO SCH ×2 (09:17→16:35)
[2022-04-25] MEDS: QUEtiapine FUMARATE 200 MG TABLET PO SCH ×2 (09:17→20:33)
[2022-04-25] MEDS: VENLAFAXINE HCL 150 MG ER CAPSULE PO SCH (09:17)
[2022-04-25 16:28] VITALS: BP 111/66
[2022-04-25] MEDS: TraZODone HCL 50 MG TABLET PO SCH (20:32)
[2022-04-26 01:34] VITALS: BP 110/64
[2022-04-26] MEDS: QUEtiapine FUMARATE 100 MG TABLET PO PRN ×2 (06:35→16:01)
[2022-04-26] MEDS: LORazepam 2 MG TABLET PO PRN (06:35)
[2022-04-26] MEDS: FERROUS SULFATE 325 MG EC TABLET PO SCH ×3 (06:36→16:30)
[2022-04-26 08:13] VITALS: BP 100/60
[2022-04-26] MEDS: GABAPENTIN 300 MG CAPSULE PO SCH ×2 (08:39→16:30)
[2022-04-26] MEDS: QUEtiapine FUMARATE 200 MG TABLET PO SCH ×2 (08:39→20:39)
[2022-04-26] MEDS: DIVALPROEX SODIUM 500 MG DR TABLET PO SCH ×2 (08:40→16:30)
[2022-04-26] MEDS: VENLAFAXINE HCL 150 MG ER CAPSULE PO SCH (08:40)
[2022-04-26 16:12] VITALS: BP 128/79
[2022-04-26] MEDS: TraZODone HCL 50 MG TABLET PO SCH (20:39)
[2022-04-26 20:46] VITALS: BP 124/80
[2022-04-27 05:23] VITALS: BP 111/62
[2022-04-27] MEDS: FERROUS SULFATE 325 MG EC TABLET PO SCH ×3 (06:42→16:06)
[2022-04-27] MEDS: DIVALPROEX SODIUM 500 MG DR TABLET PO SCH ×2 (08:06→16:06)
[2022-04-27] MEDS: GABAPENTIN 300 MG CAPSULE PO SCH ×2 (08:06→16:06)
[2022-04-27] MEDS: QUEtiapine FUMARATE 200 MG TABLET PO SCH ×2 (08:06→20:05)
[2022-04-27] MEDS: VENLAFAXINE HCL 150 MG ER CAPSULE PO SCH (08:06)
[2022-04-27 08:17] VITALS: BP 100/60
[2022-04-27] MEDS: QUEtiapine FUMARATE 100 MG TABLET PO PRN (12:05)
[2022-04-27] MEDS: TraZODone HCL 50 MG TABLET PO SCH (20:05)
[2022-04-27 20:17] VITALS: BP 104/65
[2022-04-28] MEDS: FERROUS SULFATE 325 MG EC TABLET PO SCH ×3 (06:36→16:57)
[2022-04-28] MEDS: VENLAFAXINE HCL 150 MG ER CAPSULE PO SCH (08:32)
[2022-04-28] MEDS: GABAPENTIN 300 MG CAPSULE PO SCH ×2 (08:32→16:57)
[2022-04-28] MEDS: DIVALPROEX SODIUM 500 MG DR TABLET PO SCH ×2 (08:32→16:57)
[2022-04-28] MEDS: QUEtiapine FUMARATE 100 MG TABLET PO PRN ×3 (08:32→11:45)
[2022-04-28] MEDS: QUEtiapine FUMARATE 200 MG TABLET PO SCH ×2 (09:00→20:47)
[2022-04-28 12:27] VITALS: BP 98/66
[2022-04-28 20:22] VITALS: BP 106/73
[2022-04-28] MEDS: TraZODone HCL 50 MG TABLET PO SCH (20:47)
[2022-04-29] MEDS: QUEtiapine FUMARATE 100 MG TABLET PO PRN (06:49)
[2022-04-29] MEDS: FERROUS SULFATE 325 MG EC TABLET PO SCH ×2 (07:07→11:54)
[2022-04-29 08:05] VITALS: BP 100/58
[2022-04-29] MEDS: QUEtiapine FUMARATE 200 MG TABLET PO SCH (08:07)
[2022-04-29] MEDS: VENLAFAXINE HCL 150 MG ER CAPSULE PO SCH (08:07)
[2022-04-29] MEDS: GABAPENTIN 300 MG CAPSULE PO SCH (08:07)
[2022-04-29] MEDS: DIVALPROEX SODIUM 500 MG DR TABLET PO SCH (08:07)
[2022-04-29] MEDS ORDERED: QUET200T30 PO (14:02)
[2022-04-29] MEDS ORDERED: TRAZ-252 PO (14:02)
[2022-04-29] MEDS ORDERED: DIVA-112 PO (14:02)
[2022-04-29] MEDS ORDERED: VENL150C4 PO (14:02)
[2022-04-29] MEDS ORDERED: FERR325T27 PO (21:06)
[2022-04-29] MEDS ORDERED: GABA-1181 PO (21:06)
== END 2022-04-29 12:00 | disposition home or self-care (01) | DRG 750 ==
LOC: EMS 10:50 → B3A 19:28
PROVIDERS: ADMIT Psychiatry & Neurology Psychiatry; ATTEND Psychiatry & Neurology Psychiatry
DX: F25.9 Schizoaffective disorder, unspecified (principal); D64.9 Anemia, unspecified; F31.9 Bipolar disorder, unspecified; Z20.822 Contact with and (suspected) exposure to COVID-19; F17.210 Nicotine dependence, cigarettes, uncomplicated; F15.90 Other stimulant use, unspecified, uncomplicated; G47.00 Insomnia, unspecified; K59.00 Constipation, unspecified; F41.9 Anxiety disorder, unspecified; J44.9 Chronic obstructive pulmonary disease, unspecified; E87.6 Hypokalemia; Z90.49 Acquired absence of other specified parts of digestive tract; Z91.19 Patient's noncompliance with other medical treatment and regimen; Z71.6 Tobacco abuse counseling
CPT/HCPCS: 80053; 80164; 83735; 84100; 84132; 84702; 85025; 99285; G0480